=== PATIENT | female | born 1975 | race Two or more races ===

== ENCOUNTER → 2024-06-11 | Outpatient (CLI) | payer MEDICAID, SELFPAY ==
--- NOTE | 2024-06-11 | XR_ITS ---
Examination: Screening digital mammography, bilateral Computer aided detection 3-D breast Tomosynthesis, bilateral Date and time of exam: June 11, 2024 1027 hours INDICATIONS: Palpable lump left breast 11:00 position on clinical examination by provider this week Technique: Nonmagnified MLO, CC views of the breasts to been obtained, reconstructed from 3-D Tomosynthesis images. R2 computer aided detection program utilized for evaluation of suspicious masses and/or abnormal calcifications. 3-D Tomosynthesis images obtained. Findings: The breasts are heterogeneously dense, which may obscure small masses Benign calcifications No suspicious masses Impression: BI-RADS category II: Benign Findings. Recommend 1 year follow-up mammogram.
--- NOTE | 2024-06-11 10:00 | XR_ITS ---
Examination: Breast ultrasound complete, bilateral Date and time of exam: June 11, 2024 1044 hours INDICATIONS: Left-sided intermittent breast pain beginning one year ago, palpable lump left breast 11:00 position on clinical breast examination by provider this month Technique: Real-time grayscale ultrasonographic imaging bilateral breasts, including all 4 quadrants as well as nipple retroareolar and axillary regions. Findings: Sonographic images right breast No cystic or solid mass 26 mm axillary lymph node Sonographic images left breast 10:00 cyst 9 x 6 x 8 mm No solid nodules Left axillary lymph node 4.1 cm IMPRESSION: BI-RADS Category 2: Benign findings
== END | disposition home or self-care (01) ==
LOC: CDIM 10:16
PROVIDERS: Referring Provider Internal Medicine; Visit Provider Internal Medicine
DX: Z12.31 Encounter for screening mammogram for malignant neoplasm of breast (principal); R92.323 Mammographic fibroglandular density, bilateral breasts; R92.1 Mammographic calcification found on diagnostic imaging of breast
CPT/HCPCS: 76641; 77063; 77067